=== PATIENT | female | born 1965 | race Caucasian/White ===

== ENCOUNTER 2025-01-10 14:16 | Emergency (ER) | payer OTHER, SELFPAY ==
[2025-01-10 14:31] VITALS: BP 186/114
[2025-01-10 15:33] VITALS: BP 111/71
[2025-01-10 15:40] LABS: % Basophils 0.5 % (0-2); % Eosinophils 3.3 % (0-6); % Immature Granulocytes 0.7 % (0-0.5); % Lymphocytes 22.8 % (20.5-51.1); % Monocytes 8.7 % (1.7-9.3); Absolute Basophils 0.1 10^3/uL (0-0.2); Absolute Eosinophils 0.3 10^3/uL (0-0.7); Absolute Immature Granulocytes 0.1 10^3/uL (0-0.05); Absolute Lymphocytes 2.2 10^3/uL (1.2-3.4); Absolute Monocytes 0.8 10^3/uL (0.1-0.6); Hemoglobin 14.9 g/dL (12.0-16.0); Mean Corp Hgb Conc. 33.1 g/dL (33.0-37.0); Mean Corpuscular Hgb 27.4 pg (27.0-31.0); Mean Corpuscular Volume 82.9 fL (81.0-99.0); Mean Platelet Volume 9.8 fL (7.4-10.4); Nucleated Red Blood Cells % 0 %; Platelet Count 205 10^3/uL (130-400); Red Blood Cell Count 5.43 10^6/uL (4.20-5.40); Red Cell Dist. Width 14.6 % (11.5-14.5); White Blood Cell Count 9.4 10^3/uL (4.8-10.8)
[2025-01-10 15:52] LABS: ALT (SGPT) 34 U/L (0-35); AST (SGOT) 26 U/L (14-36); Albumin 4.7 g/dl (3.5-5.0); Alkaline Phosphatase 88 U/L (38-126); Blood Urea Nitrogen 29 mg/dl (7-17); Calcium 10.1 mg/dl (8.4-10.2); Carbon Dioxide 23 mmol/L (22-30); Chloride 106 mmol/L (98-107); Glucose 95 mg/dl (70-99); Potassium 4.2 mmol/L (3.5-5.1); Sodium 140 mmol/L (135-145); Total Bilirubin 0.6 mg/dl (0.2-1.3); Total Protein 7.6 g/dl (6.3-8.2); eGFR > 60.00
[2025-01-10 16:00] VITALS: BP 74/45
[2025-01-10 16:29] VITALS: BP 106/81
[2025-01-10 17:00] VITALS: BP 138/82
[2025-01-10 17:13] VITALS: BMI 36.8
--- NOTE | 2025-01-10 18:40 | ED.CVA ---
History of Present Illness
<Behzad Kim Jr., PA-C - Last Filed: 01/10/25 19:24>
General
Chief Complaint: CVA/TIA Symptoms
Source: patient and family
Exam Limitations: none
Time Seen by Provider: 01/10/25 15:09
Nursing documentation reviewed up to this point in time: agreed with
Onset of Stroke Symptoms
Onset of symptoms known: Yes
Date of onset of symptoms: 01/08/25
Time pt last seen normal is known: No
History of Present Illness
History of Present Illness:
59-year-old female past medical history of hypertension hyperlipidemia, NIDDM presenting to the emergency department today with concerns of left-sided facial droop over the past 2 days. Also has had some mild pain on the left side. Denies nausea
vomiting chest pain shortness
Review of Systems
<LOUIS Clinton Jr. Last Filed: 01/10/25 19:24>
Review of Systems
Allergies reviewed?: Yes
All Other Systems: ROS reviewed and negative except as documented in HPI and ROS
Phy Exam
<LOUIS Clinton Jr. Last Filed: 01/10/25 19:24>
Physical Exam
Physical Exam:
GENERAL: Alert , in no apparent distress
EYE: pupils equal and reactive
NECK: Supple, no significant adenopathy.
ENT: o/p clr, mmm.
CARDIAC: Regular rate and rhythm .
LUNGS: Clear breath sounds bilaterally, no acute respiratory distress, no wheezes/rales/rhonchi
ABDOMEN: Soft, without focal tenderness, no r/g, no cvat
NEUROLOGICAL: Alert and oriented, drooping of the left side of the face with smiling with puffing of the cheeks unable to raise the left eyebrow difficulty with closing the eyelid shut on the left side. No change in sensation when palpating normal
extremity examination with normal 5 out of 5 strength and normal sensation when palpating bilaterally. Normal finger-nose and [id number] walking with steady gait
SKIN: Warm and dry, skin intact.
MUSCULOSKELETAL: No edema, well perfused.
PSYCH: Normal and appropriate interaction.
Course
<Behzad Kim Jr., PA-Ernestina - Last Filed: 01/10/25 19:24>
Orders/Labs/Results
Orders:
Orders
01/10/25 14:18
ECG [Electrocardiogram (*1)] Urgent
Reason for Study: Vertigo / Dizzy
01/10/25 14:19
EKG- Treatment ONCE
01/10/25 15:21
CT Head & Neck Angio W/wo IV Urgent
Comment:
Reason For Exam: left nekc pain, left facial droop left arm paresth
Cardiac Monitoring- Treatment ONCE
01/10/25 15:32
Complete Blood Count/With Diff Urgent
Comprehensive Metabolic Panel Urgent
01/10/25 19:12
Prednisone [Deltasone] 50 mg PO NOW STA
Valacyclovir HCl [Valtrex] 1,000 mg PO ONCE ONE
Abnormal Lab Results
01/10/25
15:32
RBC 5.43 H 10^6/uL
(4.20-5.40)
RDW 14.6 H %
(11.5-14.5)
Abs Immat Gran (auto) 0.1 H 10^3/uL
(0-0.05)
Absolute Monos (auto) 0.8 H 10^3/uL
(0.1-0.6)
Immature Gran % 0.7 H %
(0-0.5)
BUN 29 H mg/dl
(7-17)
01/10/25 15:32
01/10/25 15:32
Vital Signs
Initial and Last Documented VS:
Initial Vital Signs
Temp Pulse Resp BP Pulse Ox
98.4 F 92 18 186/114 96
01/10/25 14:31 01/10/25 14:31 01/10/25 14:31 01/10/25 14:31 01/10/25 14:31
Last Documented Vital Signs
Temp Pulse Resp BP Pulse Ox
98.4 F 90 16 138/82 97
01/10/25 14:31 01/10/25 17:01 01/10/25 17:01 01/10/25 17:00 01/10/25 17:14
Arnavlt;Augustin Contreras, - Last Filed: 01/10/25 18:57>
Orders/Labs/Results
Orders:
Orders
01/10/25 14:18
ECG [Electrocardiogram (*1)] Urgent
Reason for Study: Vertigo / Dizzy
01/10/25 14:19
EKG- Treatment ONCE
01/10/25 15:21
CT Head & Neck Angio W/wo IV Urgent
Comment:
Reason For Exam: left nekc pain, left facial droop left arm paresth
Cardiac Monitoring- Treatment ONCE
01/10/25 15:32
Complete Blood Count/With Diff Urgent
Comprehensive Metabolic Panel Urgent
01/10/25 19:12
Prednisone [Deltasone] 50 mg PO NOW STA
Valacyclovir HCl [Valtrex] 1,000 mg PO ONCE ONE
Abnormal Lab Results
01/10/25
15:32
RBC 5.43 H 10^6/uL
(4.20-5.40)
RDW 14.6 H %
(11.5-14.5)
Abs Immat Gran (auto) 0.1 H 10^3/uL
(0-0.05)
Absolute Monos (auto) 0.8 H 10^3/uL
(0.1-0.6)
Immature Gran % 0.7 H %
(0-0.5)
BUN 29 H mg/dl
(7-17)
01/10/25 15:32
01/10/25 15:32
Vital Signs
Initial and Last Documented VS:
Initial Vital Signs
Temp Pulse Resp BP Pulse Ox
98.4 F 92 18 186/114 96
01/10/25 14:31 01/10/25 14:31 01/10/25 14:31 01/10/25 14:31 01/10/25 14:31
Last Documented Vital Signs
Temp Pulse Resp BP Pulse Ox
98.4 F 90 16 138/82 97
01/10/25 14:31 01/10/25 17:01 01/10/25 17:01 01/10/25 17:00 01/10/25 17:14
<Behzad Kim Jr., PA-C - Last Filed: 01/10/25 19:24>
MDM/Problems Addressed
MDM/Problems Addressed:
59-year-old female presenting to the emergency department with concerns of left-sided facial droop. This does include the left making Buck's palsy much more likely rather than stroke. Considering she did have neck pain CT angiogram was performed
that did not show any emergent pathology. Symptoms consistent with Buck's palsy treated accordingly will follow-up closely with ENT. Return precautions given.
<Behzad Kim Jr., PA-C - Last Filed: 01/10/25 19:24>
*Critical Care Note
Total Time (30-74mins, 75-104mins- exclusive of procedures): Not Applicable
ED Attending Note
<Behzad Kim Jr., PA-C - Last Filed: 01/10/25 19:24>
-
Portions of this chart may have been created with voice recognition software.� Occasional wrong word or��sound alike� substitutions may have occurred due to the inherent limitations of voice recognition software.
<Augustin Contreras, - Last Filed: 01/10/25 18:57>
ED Attending Note
Patient seen and examined by attending physician: Yes
I performed the substantive portion of visit, reviewed & personally made and approve the management plan that is documented in note by myself or ELIZABETH.: Yes
ED Attending Note:
I agree with his note
Patient presents with 2 to 3 days worth of left facial droop. No other focal neurologic complaints.
Physical exam is consistent with a peripheral facial nerve palsy. Forehead is involved. The remainder of her neurologic exam is intact.
Agree with Buck's palsy. Will treat as such.
Discharge Plan
Departure
Patient Disposition: Home (Routine Discharge)
Date of Disposition: 01/10/25
Time of Disposition: 19:13
Patient with high blood pressure during this ER visit?: No
Condition: Good
Covid-19: Not Applicable
Discharge Problem:
Buck palsy
Instructions: Buck's Palsy (DC)
Prescriptions:
New
prednisone 20 mg tablet
60 mg PO DAILY 6 Days Qty: 18 0RF
valacyclovir 1 gram tablet
1,000 mg PO TID 7 Days Qty: 21 0RF
Artificial Eye Lubricant 83-15 % ointment
1 applic ophthalmic (eye) HS Qty: 3.5 0RF
Artificial Tears (cmc) 1 % drops
1 drp ophthalmic (eye) TID Qty: 15 0RF
Referrals:
Stew Ruiz MD [Family Provider] -
Chevy Helton MD [Active] - Follow up in 5-7 days
Activity Restrictions/Additional Instructions:
You came to the emergency department today with concerns of drooping to the left side of your face. This is consistent with Buck's palsy. The remainder of your workup was reassuring. Please follow closely with ENT for ongoing symptoms. Please
take the medic medications as prescribed. Please protect your left eye. Return for any worsening, new or concerning symptoms.
Interventions
Interventions:
*Risk Screen - Suicide Last Done: 01/10/25 14:31
*General Assessment Last Done: 01/10/25 14:31
*Neglect/Abuse Screening Last Done: 01/10/25 17:14
*ED- Fall Risk Assessment Last Done: 01/10/25 14:31
*ED COVID-19 Vaccine History Last Done: 01/10/25 14:31
ED- Pulmonary Assessment Last Done: 01/10/25 17:14
ED- Neurological Assessment Last Done: 01/10/25 17:14
ED- Cardiac Assessment Last Done: 01/10/25 17:14
ED Swallowing Screen Last Done: 01/10/25 17:14
Discharge Date and Time
Print Language: GUAMANIAN
[2025-01-10 19:00] VITALS: BP 117/65
[2025-01-10] MEDS: VALTREX 1000 MG PO (19:54)
[2025-01-10] MEDS: DELTASONE 50 MG PO (19:54)
== END 2025-01-10 20:07 | disposition home or self-care (01) ==
LOC: EMR 14:16
PROVIDERS: Physician Assistant; EMERGENCY PHYSICIAN Emergency Medicine; FAMILY PHYSICIAN Internal Medicine
DX: G51.0 Bell's palsy (principal); M54.2 Cervicalgia; I10 Essential (primary) hypertension; E78.5 Hyperlipidemia, unspecified; E11.9 Type 2 diabetes mellitus without complications; Z88.0 Allergy status to penicillin
CPT/HCPCS: 99284; 70496; 70498; 80053; 85025; 93005; Q9967